=== PATIENT | male | born 1945 | race Caucasian/White ===

== ENCOUNTER 2018-06-28 07:10 | Inpatient (IN) ==
[2018-06-28] MEDS ORDERED: methylPREDNISolone SOD SUC 125 MG/2 ML VIAL IV STA (07:28)
[2018-06-28] MEDS ORDERED: ALBUTEROL/IPRATROPIUM 3 ML NEB RESP TX STA (07:28)
[2018-06-28 08:03] LABS: Basophils % 0.3 % (0.0-0.8); Eosinophils % 0.3 % (0.00-10.9); Hematocrit 47.7 VOL% (42.0-52.0); Hemoglobin 15.2 GM/DL (14.0-18.0); Immature Granulocytes % 1.1 %; Immature Granulocytes Absolute 0.08 #; Lymphocytes # 0.8 10*3/uL (1.4-4.0); Lymphocytes % 11.6 % (21.2-54.2); Mean Corpuscular HGB Conc 31.9 GM/DL (32-36); Mean Corpuscular Hemoglobin 30 PG (27-34); Mean Corpuscular Volume 94.3 FL (87-102); Monocytes # 0.4 10*3/uL (0.11-0.8); Neutrophils # 5.8 10*3/uL (1.4-7.4); Neutrophils % 80.7 % (38.7-73.9); Platelet Count 165 T/CUMM (130-400); Red Blood Count 5.06 MC/CUMM (3.8-5.5); Red Cell Distribution Width 14.7 % (9.3-17.3); White Blood Count 7.2 T/CUMM (4-12)
[2018-06-28 08:09] LABS: ABG HCO3 16.9 MMOL/L (20-26); ABG Oxygen Saturation 94.1 % (95-100); ABG PH 7.537 (7.35-7.45); ABG PO2 67.7 MM HG (80-95); ABG TCO2 17.6 MMOL/L (23-27)
[2018-06-28 08:10] LABS: ABG PCO2 20.4 MM HG (35-48)
[2018-06-28 08:27] LABS: Albumin 3.6 G/DL (3.4-5.0); Bilirubin,Total 0.7 MG/DL (0.2-1.0); Calcium 8.8 MG/DL (8.5-10.1); Total Protein 7.9 G/DL (6.4-8.3)
[2018-06-28 09:00] LABS: Band Neutrophils 10 % (0-10); Eosinophils 1 % (0-10); Hypochromasia 1+; Lymphocytes 12 % (20-55); Microcytosis Slight; Segmented Neutrophils 72 % (50-85); Total Cells Counted 100
[2018-06-28] MEDS ORDERED: LEVOFLOXACIN INJ 500 MG in PREMIX 1 EACH IV STA (09:08)
[2018-06-28] MEDS ORDERED: ACETAMINOPHEN 325 MG TABLET PO PRN (10:25)
[2018-06-28] MEDS ORDERED: ONDANSETRON 4 MG/2 ML VIAL IV PRN (10:25)
[2018-06-28] MEDS ORDERED: ALBUTEROL/IPRATROPIUM 3 ML NEB RESP TX PRN (10:42)
[2018-06-28] MEDS: ALBUTEROL/IPRATROPIUM 3 ML NEB RESP TX SCH ×2 (15:10→20:01)
[2018-06-28 18:09] LABS: Apearance,Urine CLEAR (Clear); Bilirubin,Urine Negative (Negative); Blood, Urine Small mg/dL (Negative); Glucose,Urine (UA) 150 mg/dL (Negative); Ketones,Urine Negative (Negative); Mucus,Urine Occasional /LPF (Occasional); Nitrite,Urine Negative (Negative); Protein,Urine Negative; RBC,Urine 2 /HPF (0-4); Urine Color Yellow (Yellow); Urine Specific Gravity 1.013 (1.001-1.035); Urine Urobilinogen < 2.0 EU/DL (0.2-1.0)
[2018-06-28] MEDS: TAMSULOSIN 0.4 MG CAPSULE PO SCH (23:07)
[2018-06-28] MEDS: THEOPHYLLINE ER 300 MG TABLET PO SCH (23:08)
[2018-06-28] MEDS: PANTOPRAZOLE 40 MG TABLET PO SCH (23:08)
[2018-06-29 06:01] LABS: Basophils % 0.1 % (0.0-0.8); Hemoglobin 12.9 GM/DL (14.0-18.0); Immature Granulocytes % 0.7 %; Immature Granulocytes Absolute 0.09 #; Lymphocytes # 0.8 10*3/uL (1.4-4.0); Lymphocytes % 6.2 % (21.2-54.2); Mean Corpuscular HGB Conc 32.3 GM/DL (32-36); Mean Corpuscular Hemoglobin 30 PG (27-34); Mean Corpuscular Volume 93.7 FL (87-102); Mean Platelet Volume 9.2 FL (9.6-12.0); Monocytes # 0.8 10*3/uL (0.11-0.8); Monocytes % 6.4 % (1.7-12.7); Neutrophils # 10.6 10*3/uL (1.4-7.4); Neutrophils % 86.6 % (38.7-73.9); Platelet Count 153 T/CUMM (130-400); Red Blood Count 4.27 MC/CUMM (3.8-5.5); Red Cell Distribution Width 14.6 % (9.3-17.3); White Blood Count 12.3 T/CUMM (4-12)
[2018-06-29 06:27] LABS: Calcium 8.8 MG/DL (8.5-10.1); Potassium 4.2 MMOL/L (3.5-5.1); Risk Ratio 2.63; Thyroid Stimulating Hormone 2.11 uIU/ml (0.358-3.74); VLDL CHOLESTEROL 9.2 MG/DL
[2018-06-29 06:39] LABS: Hypochromasia 1+; Ovalocytes Slight; Platelet Estimate Adequate
[2018-06-29 06:40] LABS: Microcytosis Slight
[2018-06-29] MEDS: THYROID 60 MG TABLET PO SCH (07:07)
[2018-06-29] MEDS: ALBUTEROL/IPRATROPIUM 3 ML NEB RESP TX SCH ×4 (07:44→20:00)
[2018-06-29] MEDS: TAMSULOSIN 0.4 MG CAPSULE PO SCH ×2 (08:54→20:45)
[2018-06-29] MEDS: SIMVASTATIN 40 MG TABLET PO SCH (08:54)
[2018-06-29] MEDS: MONTELUKAST 10 MG TABLET PO SCH (08:54)
[2018-06-29] MEDS: THEOPHYLLINE ER 300 MG TABLET PO SCH ×2 (08:55→20:45)
[2018-06-29] MEDS: PANTOPRAZOLE 40 MG TABLET PO SCH (08:55)
[2018-06-29] MEDS: ASPIRIN EC 81 MG TABLET PO SCH (08:55)
[2018-06-29] MEDS: METOPROLOL SUCCINATE XL 25 MG TABLET PO SCH (08:55)
[2018-06-29] MEDS: NON-FORMULARY MEDICATION (Fluticasone/Umeclidin/Vilanter [Trelegy Ellipta 100-62.5-25] 1 P INH SCH (08:59)
[2018-06-29] MEDS ORDERED: LEVOFLOXACIN INJ 750 MG in PREMIX 1 EACH IV SCH (09:00)
[2018-06-29] MEDS: MEGESTROL ES 125 MG/ML 30 ML/BOTTLE PO SCH (09:03)
[2018-06-29] MEDS: LEVOFLOXACIN INJ 750 MG in PREMIX 1 EACH IV SCH (09:33)
[2018-06-30 05:30] LABS: Basophils % 0.1 % (0.0-0.8); Hematocrit 36.3 VOL% (42.0-52.0); Hemoglobin 11.7 GM/DL (14.0-18.0); Immature Granulocytes % 0.8 %; Immature Granulocytes Absolute 0.08 #; Lymphocytes # 1.2 10*3/uL (1.4-4.0); Lymphocytes % 11.8 % (21.2-54.2); Mean Corpuscular HGB Conc 32.2 GM/DL (32-36); Mean Corpuscular Hemoglobin 30 PG (27-34); Mean Corpuscular Volume 93.8 FL (87-102); Mean Platelet Volume 9.2 FL (9.6-12.0); Monocytes # 0.7 10*3/uL (0.11-0.8); Monocytes % 6.8 % (1.7-12.7); Neutrophils # 8.2 10*3/uL (1.4-7.4); Neutrophils % 80.5 % (38.7-73.9); Platelet Count 148 T/CUMM (130-400); Red Blood Count 3.87 MC/CUMM (3.8-5.5); Red Cell Distribution Width 14.4 % (9.3-17.3); White Blood Count 10.2 T/CUMM (4-12)
[2018-06-30 05:57] LABS: Calcium 8.1 MG/DL (8.5-10.1); Potassium 3.5 MMOL/L (3.5-5.1)
[2018-06-30 06:12] LABS: Lymphocytes 14 % (20-55); Segmented Neutrophils 84 % (50-85); Total Cells Counted 100
[2018-06-30 06:13] LABS: Platelet Estimate Decreased
[2018-06-30 06:14] LABS: Polychromasia Few
[2018-06-30] MEDS: THYROID 60 MG TABLET PO SCH (06:52)
[2018-06-30] MEDS: ALBUTEROL/IPRATROPIUM 3 ML NEB RESP TX SCH ×2 (07:27→11:00)
[2018-06-30 08:37] VITALS: BP 119/74
[2018-06-30] MEDS: MEGESTROL ES 125 MG/ML 30 ML/BOTTLE PO SCH (09:51)
[2018-06-30] MEDS: NON-FORMULARY MEDICATION (Fluticasone/Umeclidin/Vilanter [Trelegy Ellipta 100-62.5-25] 1 P INH SCH (09:51)
[2018-06-30] MEDS: MONTELUKAST 10 MG TABLET PO SCH (09:55)
[2018-06-30] MEDS: ASPIRIN EC 81 MG TABLET PO SCH (09:55)
[2018-06-30] MEDS: PANTOPRAZOLE 40 MG TABLET PO SCH (09:55)
[2018-06-30] MEDS: THEOPHYLLINE ER 300 MG TABLET PO SCH (09:55)
[2018-06-30] MEDS: METOPROLOL SUCCINATE XL 25 MG TABLET PO SCH (09:55)
[2018-06-30] MEDS: SIMVASTATIN 40 MG TABLET PO SCH (09:55)
[2018-06-30] MEDS: TAMSULOSIN 0.4 MG CAPSULE PO SCH (09:55)
[2018-06-30] MEDS: LEVOFLOXACIN INJ 750 MG in PREMIX 1 EACH IV SCH (09:56)
== END 2018-06-30 11:46 | disposition home or self-care (01) | DRG 190 ==
LOC: EDUNIT# → N.ED 07:10 → N.EDINP 10:23 → N.2W 12:07 → N.5E 13:12
PROVIDERS: ADMIT Internal Medicine Geriatric Medicine; ATTEND Internal Medicine Geriatric Medicine

== ENCOUNTER 2021-06-23 15:00 | Observation (INO) ==
[2021-06-23] MEDS ORDERED: DILTIAZEM 50 MG/10 ML VIAL IV STA (15:11)
[2021-06-23] MEDS ORDERED: DILTIAZEM INJ 100 MG in SODIUM CHLORIDE 0.9% 100 ML IV SCH (15:30)
[2021-06-23 15:54] LABS: Basophils % 0.4 % (0.0-0.8); Eosinophils # 0.1 10*3/uL (0.0-0.87); Hematocrit 46.2 VOL% (42.0-52.0); Hemoglobin 15.3 GM/DL (14.0-18.0); Immature Granulocytes % 0.3 %; Immature Granulocytes Absolute 0.02 #; Mean Corpuscular HGB Conc 33.1 GM/DL (32-36); Mean Corpuscular Volume 95.9 FL (87-102); Mean Platelet Volume 8.7 FL (9.6-12.0); Monocytes % 7.9 % (1.7-12.7); Neutrophils % 77.4 % (38.7-73.9); Platelet Count 163 T/CUMM (130-400); Red Blood Count 4.82 MC/CUMM (3.8-5.5); Red Cell Distribution Width 12.7 % (9.3-17.3); White Blood Count 7.8 T/CUMM (4-12)
[2021-06-23] MEDS ORDERED: ONDANSETRON 4 MG/2 ML VIAL IV PRN (16:13)
[2021-06-23] MEDS ORDERED: ACETAMINOPHEN 325 MG TABLET PO PRN (16:13)
[2021-06-23] MEDS ORDERED: ALUMINUM/MAGNES/SIMETH MAX STR 30 ML UDCUP PO PRN (16:13)
[2021-06-23] MEDS ORDERED: DOCUSATE SODIUM 100 MG CAPSULE PO PRN (16:13)
[2021-06-23] MEDS ORDERED: ZALEPLON 5 MG CAPSULE PO PRN (16:13)
[2021-06-23 16:18] LABS: INR 1.1; Partial Thromboplastin Time 26.2 SECS (23.8-32.1)
[2021-06-23 16:22] LABS: Albumin 3.5 G/DL (3.4-5.0); Bilirubin,Total 0.6 MG/DL (0.20-1.00); Calcium 10.2 MG/DL (8.5-10.1); Osmolality,Calculated 279.5 MOS/KG (273-304); Potassium 3.4 MMOL/L (3.5-5.1); Thyroid Stimulating Hormone 0.92 uIU/ml (0.358-3.74); Total Protein 7.7 G/DL (6.4-8.2)
[2021-06-23] MEDS ORDERED: NITROGLYCERIN SL 0.4 MG TABLET SL PRN (16:23)
[2021-06-23 16:44] LABS: Bacteria,Urine Occasional /HPF (Few); Bilirubin,Urine Negative (Negative); Blood, Urine Negative (Negative); Glucose,Urine (UA) Negative (Negative); Ketones,Urine Negative (Negative); Nitrite,Urine Negative (Negative); Protein,Urine Negative; RBC,Urine 1 /HPF (0-4); Urine Appearance CLEAR (Clear); Urine Color Yellow (Yellow); Urine Specific Gravity 1.009 (1.001-1.035); Urine Urobilinogen < 2.0 EU/DL (<2.0)
[2021-06-23] MEDS ORDERED: POTASSIUM CHLORIDE 20 MEQ TABLET PO ONE (16:49)
[2021-06-23 17:16] LABS: Barbiturates Screen,Urine Negative (Negative); Benzodiazepines Screen,Urine Negative (Negative); Cannabinoid Screen,Urine Negative (Negative); Opiate Screen,Urine Negative (Negative); Phencyclidine Screen,Urine Negative (Negative)
[2021-06-23] MEDS: DILTIAZEM CD 120 MG CAPSULE PO SCH (18:25)
[2021-06-23] MEDS ORDERED: ATORVASTATIN 80 MG TABLET PO SCH (21:00)
[2021-06-23] MEDS ORDERED: METOPROLOL SUCCINATE XL 25 MG TABLET PO SCH (21:00)
[2021-06-23] MEDS: APIXABAN 5 MG TABLET PO SCH (21:16)
[2021-06-23] MEDS: MAGNESIUM OXIDE 400 MG TABLET PO SCH (21:16)
[2021-06-23] MEDS: POTASSIUM CHLORIDE 20 MEQ TABLET PO SCH (21:17)
[2021-06-23] MEDS ORDERED: PANTOPRAZOLE 40 MG TABLET PO SCH ×2 (21:30)
[2021-06-24 06:18] LABS: Basophils % 0.3 % (0.0-0.8); Eosinophils # 0.1 10*3/uL (0.0-0.87); Eosinophils % 1.7 % (0.00-10.9); Hemoglobin 13.6 GM/DL (14.0-18.0); Immature Granulocytes % 0.5 %; Immature Granulocytes Absolute 0.03 #; Lymphocytes # 0.8 10*3/uL (1.4-4.0); Lymphocytes % 11.7 % (21.2-54.2); Mean Corpuscular HGB Conc 33.2 GM/DL (32-36); Mean Corpuscular Volume 95.8 FL (87-102); Monocytes % 10.2 % (1.7-12.7); Neutrophils % 75.6 % (38.7-73.9); Platelet Count 148 T/CUMM (130-400); Red Blood Count 4.28 MC/CUMM (3.8-5.5); Red Cell Distribution Width 12.9 % (9.3-17.3); White Blood Count 6.6 T/CUMM (4-12)
[2021-06-24 06:34] LABS: Calcium 8.7 MG/DL (8.5-10.1); Osmolality,Calculated 282.3 MOS/KG (273-304); Potassium 4.3 MMOL/L (3.5-5.1)
[2021-06-24 08:16] VITALS: BP 143/87
[2021-06-24] MEDS ORDERED: CALCIUM CITRATE PO SCH (09:00)
[2021-06-24] MEDS ORDERED: METOPROLOL SUCCINATE XL 25 MG TABLET PO SCH (09:00)
[2021-06-24] MEDS ORDERED: OMEGA 3 ACID ETHYL ESTERS 1 GM CAPSULE PO SCH (09:00)
[2021-06-24] MEDS ORDERED: THEOPHYLLINE ER 300 MG TABLET PO SCH (09:00)
[2021-06-24] MEDS ORDERED: FLUTICASONE UMECLIDIN VILANTER INH SCH (09:00)
[2021-06-24] MEDS ORDERED: ASPIRIN EC 81 MG TABLET PO SCH (09:00)
[2021-06-24] MEDS ORDERED: MONTELUKAST 10 MG TABLET PO SCH ×2 (09:00)
[2021-06-24] MEDS ORDERED: TAMSULOSIN 0.4 MG CAPSULE PO SCH (09:00)
[2021-06-24] MEDS ORDERED: SOTALOL 80 MG TABLET PO SCH (09:00)
[2021-06-24] MEDS: MAGNESIUM OXIDE 400 MG TABLET PO SCH (09:53)
[2021-06-24] MEDS: POTASSIUM CHLORIDE 20 MEQ TABLET PO SCH (09:54)
[2021-06-24] MEDS: APIXABAN 5 MG TABLET PO SCH (09:54)
[2021-06-24] MEDS: DILTIAZEM CD 120 MG CAPSULE PO SCH (10:04)
[2021-06-24] MEDS ORDERED: ALBUTEROL/IPRATROPIUM 3 ML NEB RESP TX SCH (11:00)
[2021-06-25] MEDS ORDERED: THYROID 60 MG TABLET PO SCH (06:30)
== END 2021-06-24 11:25 | disposition home or self-care (01) ==
LOC: EDUNIT# → EDBD → N.EDINP 15:00 → N.ED 15:00 → N.TELEN 18:26
PROVIDERS: ADMIT Internal Medicine Cardiovascular Disease; ATTEND Internal Medicine Cardiovascular Disease